=== PATIENT | female | born 1965 | race Caucasian/White ===

== ENCOUNTER 2024-09-07 14:00 | Outpatient (CLI) | payer MEDICAID, SELFPAY ==
--- NOTE | ~2024-09-07 | CT_ITS ---
CT Scan of the Chest without Contrast: Clinical Indication: Lung cancer screening, nicotine dependence Technique: Contiguous sections were acquired throughout the chest without intravenous contrast. Dose reduction technique was used on this scan by utilizing automated exposure control and iterative recon struction technique. The dose-length product (DLP) was 125.99 mGy-cm. Findings: There is no evidence of any significant mediastinal, hilar or axillary lymphadenopathy. The mediastin al soft tissues appear normal. There is no evidence of pleural or pericardial effusion. The lungs are clear. No pulmonary nodules or infiltrates are noted. Images through the upper abdomen reveal no abnormalities. Impression: Lung RADS 1: Negative. 12 month follow-up screening CT advised. Reviewed, dictated and finalized at location . Impression: Lung RADS 1: Negative. 12 month follow-up screening CT advised.
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
--- OUTSIDE RECORDS SUMMARY | 2024-09-07 14:17 | XMS_ITS ---
Author Organization Formerly [facility] Address [address] [place] [address] Care Team Providers Care Dustless Operator Name Role Phone Amy Medina Primary Care Provider Aníbal VORA Unavailable Unavailable Wanda Lou Unavailable [phone] REASON FOR VISIT MAT F/U Social History Sex Assigned At : Social History Observation Description Sex Assigned At Female Encounters Encounter Location Date Provider Diagnosis [address] [address] 08/31/2024 Wanda Lou Plan Of Treatment Next Appt Details Provider Name:Wanda howard, 09/13/2024 01:20:00 PM, [address], [place], [address], Progress Notes * Shantelle RAINEYDOB:1965 (59 yo F)Acc No.[id number]:08/31/2024 UNLOCKED PROGRESS NOTE Patient: Keely Shantelle JIMENEZ Provider: Rosalina Lou, MSN, CLASSIFICATION COUNSELOR, HUC-BC, HUC-C :1965 A ge:59 Y S ex:Female Date:08/31/2024 Address: [address] [place], [place]-[address] Pcp:Amy Medina Subjective: * Chief Complaints: * 1 . MAT F/U. * Medical History: Objective: * Vitals: Assessment: Plan: * Treatment: * Care Plan Details* * Electronic signature of Russell Lou APRN, [id number] on 09/07/2024 at 02:17 PM CDT Sign off status: Pending * Provider: Rosalina Lou, LAYLA, CLASSIFICATION COUNSELOR, HUC-BC, HUC-C Date: 08/31/2024 Generated for Printing/Faxing/eTransmitting on: 09/07/2024 02:17 PM CDT
== END 2024-09-07 14:01 | disposition home or self-care (01) ==
PROVIDERS: PCP Nurse Practitioner Family; Visit Provider Nurse Practitioner Family
DX: Z12.2 Encounter for screening for malignant neoplasm of respiratory organs (principal); Z87.891 Personal history of nicotine dependence
CPT/HCPCS: 71271

== ENCOUNTER 2025-01-25 14:06 | Outpatient (CLI) | payer OTHER, SELFPAY ==
--- NOTE | ~2025-01-25 | MM_ITS ---
EXAMINATION: MM screening veronica BI w sharon HISTORY: Screening. TECHNIQUE: Craniocaudal and mediolateral oblique 3-D tomosynthesis images were obtained and synthetic 2-D images were generated. CAD analysis was submitted and interpreted. COMPARISON: None available. BREAST PARENCHYMAL COMPOSITION: Not Dense: There are scattered areas of fibroglandular FINDINGS: No suspicious masses are seen. There are no suspicious calcifications. No unexplained architectural distortion is seen. There are no skin or nipple abnormalities identified. There is no adenopathy seen on the images submitted. IMPRESSION: No mammographic evidence to suggest malignancy is seen. The patient may return to screening mammography as per ACR guidelines. BI-RADS 1 - Negative. Reviewed, dictated and finalized at location C. 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
== END 2025-01-25 14:07 | disposition home or self-care (01) ==
LOC: ANHFOHIMG 14:16
PROVIDERS: PCP Nurse Practitioner Family; Visit Provider Nurse Practitioner Family
DX: Z12.31 Encounter for screening mammogram for malignant neoplasm of breast (principal)
CPT/HCPCS: 77063; 77067